=== PATIENT | female | born 1945 | race Caucasian/White ===

== ENCOUNTER 2022-03-01 10:30 | Day surgery (SDC) | payer MEDICARE, OTHER, SELFPAY ==
[2022-02-19 12:14] VITALS: BMI 31.0
--- NOTE | 2022-03-01 08:14 | P.PNAN_ITS ---
Anes - Initial Pre Proc Eval Procedure: Operation Date: 03/01/22 11:30 Proposed Procedures p Esophagogastroduodenoscopy - Josue Cruz MD Date/Time: 03/01/22 08:14 Surgeon: Josue Cruz MD Pre Op Diagnosis: GERD Patient Data Age: 76 Gender: F Height: 1.6 m Weight: 79.5 kg Allergies Allergy/AdvReac Type Severity Reaction Status Date / Time azithromycin Allergy Swelling Verified 03/01/22 10:51 of Lip/Tongue/Throat Home Medications Medication Instructions Recorded Confirmed Type [facility] 1 tablet PO DAILY 02/19/22 02/19/22 History ascorbic acid (vitamin C) 500 mg 500 mg PO DAILY 02/19/22 02/19/22 History capsule cholecalciferol (vitamin D3) 25 25 mcg PO DAILY 02/19/22 02/19/22 History mcg (1,000 unit) tablet (Vitamin D3) cranberry 400 mg capsule 400 mg PO DAILY 02/19/22 02/19/22 History omeprazole 40 mg capsule,delayed 40 mg PO DAILY 02/19/22 02/19/22 History release simvastatin 20 mg tablet 20 mg PO DAILY 02/19/22 02/19/22 History vitamin E 400 unit tablet 400 unit PO DAILY 02/19/22 02/19/22 History Patient hx anesthesia problems: none Family hx anesthesia problems: none Results Review: All pre-operative results and documents have been reviewed as part of the pre- operative evaluation. [facility] Past Medical History Medical History (Updated 03/01/22 @ 11:04 by Josue Cruz MD) GERD (gastroesophageal reflux disease) Hyperlipidemia Surgical History Surgical History (Updated 02/26/22 @ 14:47 by Jeremy Walker DO) History of hysterectomy Social History Social History Smoking status: Never smoker Alcohol intake: current Drinks per week: 3 Substance use type: does not use Living arrangements: with family Spiritual care concerns: No Anes - Eval Final PreProcedure Day of Procedure 03/01/22 08:14 Patient weight: obese Heart: regular rate and rhythm Lungs: clear to auscultation Airway: Mallampati scale class II Neurological: alert and oriented Last oral intake: >/= 8 hours ASA classification: II Emergent: no Anesthetic plan: proceed Anesthesia type and monitoring: general GIVS and standard monitoring Results Review: All pre-operative results and documents have been reviewed as part of the pre-operative evaluation. Informed Consent: The patient's anesthetic plan and its attendant risks and benefits were discussed with the patient/family/POA. Questions were solicited and answers provided to the satisfaction of the patient/family/POA.
[2022-03-01 10:52] VITALS: BP 161/78; PULSE 83; RESP 19; TEMP 35.9; O2SAT 98
--- NOTE | 2022-03-01 11:02 | P.HP_ITS ---
H&P: HPI History of Present Illness Date/Time: 03/01/22 11:02 Chief Complaint: Chronic GERD Narrative: this is a 76-year-old white female patient presents for EGD. Patient gives a history of chronic acid reflux disease. Currently well controlled on omeprazole 40mg p.o. daily. She denies any dysphagia. Patient has had no bleeding or weight loss. Family history is significant for a stepbrother and a stepsister who both have had gastric cancer. Patient presents today for surveillance EGD. Review of Systems Review of Systems: Review of systems noncontributory. [facility] Past Medical History Medical History (Updated 03/01/22 @ 11:04 by Josue Cruz MD) GERD (gastroesophageal reflux disease) Hyperlipidemia Surgical History Surgical History (Updated 02/26/22 @ 14:47 by Jeremy Walker DO) History of hysterectomy Social History Social History Smoking status: Never smoker Alcohol intake: current Drinks per week: 3 Substance use type: does not use Living arrangements: with family Spiritual care concerns: No Meds Home Medications and Allergies Home Medications Medication Instructions Recorded Confirmed Type [facility] 1 tablet PO DAILY 02/19/22 02/19/22 History ascorbic acid (vitamin C) 500 mg 500 mg PO DAILY 02/19/22 02/19/22 History capsule cholecalciferol (vitamin D3) 25 25 mcg PO DAILY 02/19/22 02/19/22 History mcg (1,000 unit) tablet (Vitamin D3) cranberry 400 mg capsule 400 mg PO DAILY 02/19/22 02/19/22 History omeprazole 40 mg capsule,delayed 40 mg PO DAILY 02/19/22 02/19/22 History release simvastatin 20 mg tablet 20 mg PO DAILY 02/19/22 02/19/22 History vitamin E 400 unit tablet 400 unit PO DAILY 02/19/22 02/19/22 History Allergies Allergy/AdvReac Type Severity Reaction Status Date / Time azithromycin Allergy Swelling Verified 03/01/22 10:51 of Lip/Tongue/Throat Vital Signs Vital Signs - 24 hr 03/01/22 10:52 Temperature 96.7 F L Pulse Rate 83 Respiratory Rate 19 Blood Pressure 161/78 H Pulse Oximetry 98 Oxygen Delivery Room Air Exam Narrative: Physical exam reveals patient to be alert. Vital signs stable. HEENT exam is unremarkable. Patient is anicteric. Lungs are clear to auscultation and percussion. Heart is without murmur or extra sounds. Abdominal exam bowel sounds are present soft nontender with no organomegaly. Assessment and Plan Assessment and plan (1) Chronic GERD: Code(s): K21.9 - Gastro-esophageal reflux disease without esophagitis Status: Acute Assessment and Plan: Patient has complaints of chronic ongoing GE reflux disease this is currently well controlled with PPI therapy and anti-reflux measures. Plan is for EGD because of chronicity of symptoms also because of family history of 2 half siblings with gastric cancer. Further recommendations will be given after endoscopy.
[2022-03-01] MEDS: LACTATED RINGERS 1,000 ML 150 ML IV CONT (11:05)
[2022-03-01] MEDS: SIMETHICONE ORAL SUSPENSION 20 MG/0.3 ML 30 ML BOTTLE 0.6 ML IRRIGATION (11:13)
[2022-03-01 11:18] VITALS: BP 104/61; PULSE 80; RESP 20; O2SAT 95
[2022-03-01 11:28] VITALS: BP 108/47; PULSE 76; RESP 18; O2SAT 96
[2022-03-01 11:38] VITALS: BP 130/68; PULSE 74; RESP 20; O2SAT 100
== END 2022-03-01 11:51 | disposition home or self-care (01) ==
LOC: ANHENDO 14:34
PROVIDERS: PCP Family Medicine; Visit Provider Internal Medicine Gastroenterology
PROC: 0DJ08ZZ Inspection of Upper Intestinal Tract, Via Natural or Artificial Opening Endoscopic (ICD-10-PCS; CPT 43235; principal; 2022-03-01 11:30)
DX: K21.9 Gastro-esophageal reflux disease without esophagitis (principal); K44.9 Diaphragmatic hernia without obstruction or gangrene; E78.5 Hyperlipidemia, unspecified; E66.9 Obesity, unspecified; Z68.31 Body mass index [BMI] 31.0-31.9, adult
CPT/HCPCS: 43239; 87081; J2704; J7120